=== PATIENT | female | born 1980 | race Caucasian/White ===

== ENCOUNTER 2018-02-27 17:55 | Emergency (ER) | payer MEDICAID | END 2018-02-27 19:09 | disposition left against medical advice (07) | LOC: ER 17:55 | DX: Z53.20 Procedure and treatment not carried out because of patient's decision for unspecified reasons (principal) ==

== ENCOUNTER 2018-11-15 17:50 | Emergency (ER) | payer MEDICAID ==
[2018-11-15] MEDS ORDERED: ACETAMINOPHEN 1,000 MG/100 ML BTL IVPB ONE (18:12)
[2018-11-15] MEDS ORDERED: 0.9 % SODIUM CHLORIDE 1000ML 1,000 ML IV SCH (18:15)
--- NOTE | 2018-11-15 18:16 | Emergency Department Record ---
History of Present Illness - General Chief Complaint: Abdominal Pain Stated Complaint: BLOOD IN STOOL, ABD PAIN Time Seen by Provider: 11/15/18 18:08 Source: Patient Mode of Arrival: Ambulatory Limitations: No limitations - History of Present Illness Initial Comments: 38 yo female presents to ED for evaluation of bilateral lower abdominal pain symptoms associated with BRBPR with bowel movements, reports that her symptoms began 3 days ago. Patient reports that her lower abdominal pain has worsened prompting visit to the ED for evaluation. Patient reports similar symptoms 5 years ago, underwent colonoscopy which was negative. Patient denies health problems at her baseline, does not take anticoagulation medications, and reports hysterectomy as her only previous abdominal surgery. MD Complaint: Abdominal pain Onset/Timin -: Days(s) Location: LLQ, RLQ Migration to: No migration Severity: Moderate Quality: Aching Consistency: Constant Improves With: Nothing Worsens With: Nothing Associated Symptoms: Hematochezia, Nausea - Related Data Patient : No Home Medications Medication Instructions Recorded Confirmed Last Taken Alprazolam [Xanax] 0.5 mg PO ASDIR 11/15/18 11/15/18 Unknown Previous Rx's Medication Instructions Recorded Famotidine [Pepcid] 40 mg PO DAILY #30 tablet 11/15/18 Hyoscyamine Sulfate [Levsin-Sl] 0.25 mg SL Q8H PRN #20 tab.subl 11/15/18 Allergies Allergy/AdvReac Type Severity Reaction Status Date / Time cephalexin monohydrate Allergy Severe ANAPHYLAXIS Verified 11/15/18 18:06 [From Keflex] Penicillins Allergy Severe ANAPHYLAXIS Verified 11/15/18 18:06 Sulfa (Sulfonamide Allergy Severe ANAPHYLAXIS Verified 11/15/18 18:06 Antibiotics) Travel Screening - Travel/Exposure Within Last 30 Days Have you traveled within the last 30 days?: No Review of Systems Constitutional: Denies: Chills, Fever, Malaise, Night sweats Eyes: Denies: Eye discharge, Eye pain ENT: Denies: Congestion, Ear pain, Epistaxis Respiratory: Denies: Cough, Dyspnea Cardiovascular: Denies: Chest pain, Dyspnea on exertion Endocrine: Denies: Fatigue, Heat or cold intolerance Gastrointestinal: Reports: Abdominal pain, Hematochezia. Denies: Constipation, Diarrhea, Vomiting Genitourinary: Denies: Incontinence, Retention Musculoskeletal: Denies: Arthralgia, Back pain, Gout, Joint swelling Skin: Denies: Bruising, Change in color Neurological: Denies: Abnormal gait, Confusion, Headache, Numbness, Tingling Psychiatric: Denies: Anxiety Hematological/Lymphatic: Denies: Anemia, Blood Clots Past Medical History - SOCIAL HISTORY Smoking Status: Heavy tobacco smoker (>10/day) Alcohol Use: Occasional Drug Use: None - RESPIRATORY Hx Respiratory Disorders: Yes Hx Asthma: Yes - CARDIOVASCULAR Hx Cardio Disorders: No - NEURO Hx Neuro Disorders: Yes Hx Headaches: Yes - GI Hx GI Disorders: Yes Hx Rectal Bleeding: Yes - Hx Genitourinary Disorders: No - ENDOCRINE Hx Endocrine Disorders: No - MUSCULOSKELETAL Hx Musculoskeletal Disorders: No - PSYCH Hx Psych Problems: No - HEMATOLOGY/ONCOLOGY Hx Hematology/Oncology Disorders: No Family Medical History Any Significant Family History?: Yes Hx Diabetes: Grandparents Hx Resp Disorders: Father, Brother/Sister Physical Exam - General General Appearance: Alert, Oriented x3, Cooperative, Mild distress Limitations: No limitations - Head Head exam: Atraumatic, Normocephalic, Normal inspection Head exam detail: negative: Abrasion, Contusion, Thornton's sign, General tenderness, Hematoma, Laceration - Eye Eye exam: Normal appearance. negative: Conjunctival injection, Periorbital swelling, Periorbital tenderness, Scleral icterus - ENT Ear exam: negative: Auricular hematoma, Auricular trauma Nasal Exam: negative: Active bleeding, Discharge, Dried blood, Foreign body Mouth exam: negative: Drooling, Laceration, Muffled voice, Tongue elevation - Neck Neck exam: Normal inspection. negative: Meningismus, Tenderness - Respiratory Respiratory exam: Normal lung sounds bilaterally. negative: Respiratory distress, Rhonchi, Stridor, Wheezes - Cardiovascular Cardiovascular Exam: Regular rate, Normal rhythm, Normal heart sounds - GI/Abdominal GI/Abdominal exam: Soft, Tenderness (TTP LLQ, suprapubic, and RLQ regions on examination, no rebound, guarding, or peritoneal signs on examination.). negative: Pulsatile mass, Rebound, Rigid - Rectal Rectal exam: Deferred - exam: Deferred - Extremities Extremities exam: Normal inspection. negative: Pedal edema, Tenderness - Back Back exam: Denies: CVA tenderness (R), CVA tenderness (L) - Neurological Neurological exam: Alert, Normal gait, Oriented X3 - Psychiatric Psychiatric exam: Normal affect, Normal mood - Skin Skin exam: Normal color. negative: Abrasion Type of lesion: negative: abrasion Course Vital Signs 11/15/18 18:02 Temperature 97.8 F Pulse Rate 92 H Respiratory 20 Rate Blood Pressure 138/83 Pulse Ox 98 - Reevaluation(s) Reevaluation #1: 11/15/18 19:12 Laboratory studies were reviewed and are grossly unremarkable for an acute process. CT Abdomen and Pelvis: Post-operative changes including hysterectomy, appendectomy Cysts vs. hemangiomas in the liver, unchanged from previous Large right inguinal node, unchanged from previous study. Patient was updated on all results, no evidence for an acute inflammatory change in the abdomen/pelvis. Will initiate treatment with Pepcid as directed for possible PUD. Patient denies rectal pain symptoms, we did discuss performing a rectal examination to exclude a lower source of GI bleeding, patient declined. Patient appears stable for discharge with close follow-up with her PCP. Medical Decision Making - Lab Data Result diagrams: 11/15/18 18:10 11/15/18 18:10 Disposition Disposition: Discharge Clinical Impression: Hematochezia Abdominal pain Qualifiers: Abdominal location: lower abdomen, unspecified Qualified Code(s): R10.30 - Lower abdominal pain, unspecified Disposition: Home, Self-Care Condition: (2) Stable Instructions: Abdominal Pain (ED) Additional Instructions: Return to ED if your symptoms worsen or if you have any concerns. Pepcid and Levsin as directed. Follow-up with your family doctor in 3-5 days as directed. Prescriptions: Famotidine [Pepcid] 40 mg PO DAILY #30 tablet Hyoscyamine Sulfate [Levsin-Sl] 0.25 mg SL Q8H PRN #20 tab.subl PRN Reason: Abdominal Pain Forms: Patient Portal Access Time of Disposition: 19:16 Quality - Quality Measures Quality Measures: N/A - Blood Pressure Screening Does Patient Have Any of the Following: No Blood Pressure Classification: Pre-Hypertensive BP Reading Systolic Measurement: 138 Diastolic Measurement: 83 Screening for High Blood Pressure: < Pre-Hypertensive BP, F/U Documented > [ [id number]] Pre-Hypertensive Follow-up Interventions: Referral to alternative/primary care provider.
[2018-11-15 18:26] LABS: BASO % 1.1 % (0-6); EOS % 3.1 % (0-6); GRAN % 50.5 % (47-80); HEMATOCRIT 42.8 % (35.0-47.0); HEMOGLOBIN 14.4 gm/dl (11.6-16.0); LYMPH % 34.8 % (16-45); MEAN CELL VOLUME 96.4 fl (81-97); MEAN CORPUSCULAR HEMOGLOBIN 32.4 pg (27-33); MEAN CORPUSCULAR HGB CONC 33.6 g/dl (32-36); MEAN PLATELET VOLUME 9.8 fl (7.4-10.4); MONO % 10.5 % (0-9); PLATELET COUNT 226 K/uL (130-400); RED BLOOD COUNT 4.44 M/uL (3.80-5.40); RED CELL DISTRIBUTION WIDTH 13.1 % (11.5-14.5); URINE APPEARANCE CLEAR; URINE BILIRUBIN NEGATIVE (NEGATIVE); URINE BLOOD NEGATIVE (NEGATIVE); URINE COLOR YELLOW; URINE GLUCOSE (UA) NEGATIVE (NEGATIVE); URINE KETONE NEGATIVE (NEGATIVE); URINE LEUKOCYTE ESTERASE NEGATIVE (NEGATIVE); URINE NITRITE NEGATIVE (NEGATIVE); URINE PROTEIN NEGATIVE (NEGATIVE); URINE UROBILINOGEN 0.2 E.U./dL (0.20 - 1.00); WHITE BLOOD COUNT W/O DIFF 6.1 K/uL (4.2-12.2)
[2018-11-15 18:38] LABS: BLOOD UREA NITROGEN 11 mg/dL (6-20); CREATININE 0.5 mg/dL (0.5-0.9); EST GLOMERULAR FILTRATION RATE > 60 mL/min
[2018-11-15 18:39] LABS: LIPASE 35 U/L (13-60); TOTAL PROTEIN 6.8 g/dL (6.6-8.7)
[2018-11-15 18:41] LABS: GLUCOSE,RANDOM 118 mg/dL (74-109)
[2018-11-15 18:44] LABS: ALB/GLOB RATIO 1.7 (1.1-1.8); ALBUMIN 4.3 g/dL (4.0-5.0); ALKALINE PHOSPHATASE 54 U/L (45-87); ALT/SGPT 21 U/L (<33); AST/SGOT 22 U/L (10.0-35.0)
[2018-11-15] MEDS ORDERED: MORPHINE SULFATE 10 MG/ML VIAL IVP ONE (19:40)
--- NOTE | 2018-11-17 10:40 | CT SCAN REPORT ---
EXAM: CT SCAN ABDOMEN/PELVIS W CONTRAST HISTORY: LOWER ABDOMINAL PAIN, BLOOD IN THE STOOL. HYSTERECTOMY. APPENDECTOMY. TECHNIQUE: Axial CT scan of the abdomen and pelvis performed following IV contrast administration. No oral contrast utilized at the referring physician's request. Please see the medical record for IV contrast specifics. COMPARISON: CT abdomen and pelvis 08/27/15. FINDINGS: No calcified gallstones are seen within the gallbladder. There are a few tiny low-attenuation foci in the liver. These were present previously as well and are too small to characterize with the largest only measuring about 4 mm in diameter but likely all represent tiny cysts or hemangiomas. No definite splenic, adrenal, pancreatic, or renal mass identified. There is a single mildly enlarged node in the right inguinal region measuring about 10.5 mm in maximum short axis. This appears essentially unchanged from before and so is presumably of no clinical significance. Elsewhere, no adenopathy identified. The uterus and appendix are not identified consistent with the surgical history. Evaluation of the bowel is very limited without oral contrast. Minor diverticulosis left side of the colon but no diverticulitis evident. No free intraperitoneal air or free intraperitoneal fluid identified. IMPRESSION: 1. PROBABLY TINY CYSTS OR HEMANGIOMAS IN THE LIVER, ALSO PRESENT ON 08/27/15. 2. POST-OP HYSTERECTOMY AND APPENDECTOMY. 3. SINGLE MILDLY ENLARGED RIGHT INGUINAL NODE APPEARING ESSENTIALLY UNCHANGED FROM 08/27/15 AND SO PRESUMABLY OF NO CLINICAL SIGNIFICANCE. 4. MINOR DIVERTICULOSIS IN THE COLON BUT NO DIVERTICULITIS EVIDENT. JOB NUMBER: [id number] MTDD
== END 2018-11-15 20:19 | disposition home or self-care (01) ==
LOC: ER 17:50
DX: K92.1 Melena (principal); R10.30 Lower abdominal pain, unspecified; R11.0 Nausea; F17.210 Nicotine dependence, cigarettes, uncomplicated
CPT/HCPCS: 99284 ×2; 96365; 96375; 96361; 83690; 85025; 80053; 81003; 74177; Q9967; J2270; J7030